=== PATIENT | female | born 1965 | race Caucasian/White ===

== ENCOUNTER 2017-04-09 11:37 | Emergency (ER) | payer OTHER ==
[~2017-04-09] VITALS: Ht 165.1 cm; Wt 86.8 kg
[~2017-04-09 11:37] MED LIST: NORCO 5/3251 TABLET PO
[2017-04-09 15:14] VITALS: BP 142/76
== END 2017-04-09 15:20 | disposition home or self-care (01) ==
LOC: EME 11:37
DX: I80.01 Phlebitis and thrombophlebitis of superficial vessels of right lower extremity (principal); K21.9 Gastro-esophageal reflux disease without esophagitis; J45.909 Unspecified asthma, uncomplicated; F32.9 Major depressive disorder, single episode, unspecified; F17.200 Nicotine dependence, unspecified, uncomplicated; Z87.442 Personal history of urinary calculi; Z88.5 Allergy status to narcotic agent
CPT/HCPCS: 93971; 99281; 99283